=== PATIENT | female | born 1960 | race Caucasian/White ===

== ENCOUNTER → 2018-01-10 07:56 | Outpatient (CLI) | payer OTHER, SELFPAY ==
--- NOTE | 2018-01-10 | DI.MG.S_ITS ---
BILATERAL DIGITAL SCREENING MAMMOGRAM 3D/2D WITH CAD: 01/10/2018 CLINICAL: Routine screening. Comparison is made to exams dated: 11/03/2015 mammogram, 10/16/2012 mammogram, and 08/05/2009 mammogram - [facility]. The tissue of both breasts is heterogeneously dense. This may lower the sensitivity of mammography. Current study was also evaluated with a Computer Aided Detection (CAD) system. No significant masses, calcifications, or other findings are seen in either breast. There has been no significant interval change. IMPRESSION: NEGATIVE There is no mammographic evidence of malignancy. A 1 year screening mammogram is recommended. This exam was interpreted at Station ID: [id number]. NOTE: For mammograms, a report in lay terms will be sent to the patient. Approximately 15% of breast malignancies will not be visualized mammographically. In the management of a palpable breast mass, a negative mammogram must not discourage biopsy of a clinically suspicious lesion. Electronically Signed By: Farzad phillips/cristina:01/12/2018 02:37:02 letter sent: Normal Exam ACR BI-RADS Category 1: Negative [id number]
== END ==
PROVIDERS: Visit Provider Family Medicine
DX: Z12.31 Encounter for screening mammogram for malignant neoplasm of breast (principal)
CPT/HCPCS: 77063; 77067

== ENCOUNTER → 2018-11-08 10:32 | Outpatient (CLI) | payer OTHER, SELFPAY | DX: Z12.11 Encounter for screening for malignant neoplasm of colon (principal) | CPT/HCPCS: 82274 ==

== ENCOUNTER → 2018-11-13 14:41 | Outpatient (CLI) | payer OTHER, SELFPAY | DX: M85.88 Other specified disorders of bone density and structure, other site (principal); Z78.0 Asymptomatic menopausal state; M85.851 Other specified disorders of bone density and structure, right thigh; M85.852 Other specified disorders of bone density and structure, left thigh | CPT/HCPCS: 77080 ==

== ENCOUNTER 2021-12-23 11:15 | Emergency (ER) | payer OTHER, SELFPAY ==
[2021-12-23] VITALS (7 sets, daily range): BP systolic 123–155; BP diastolic 59–70; PULSE 61–72; RESP 14–22; TEMP 36.2; O2SAT 98–100; BMI 26.1
--- NOTE | 2021-12-23 11:41 | DI.RAD.S_ITS ---
PROCEDURE: XR CHEST 1V INDICATIONS: chest pain TECHNIQUE: One view of the chest was acquired. COMPARISON: None. FINDINGS: Surgical changes and devices: None. Lungs and pleura: Abnormal fullness can be seen within the left perihilar region. The lungs otherwise appear clear. No pleural effusions or pneumothorax. Mediastinum: Mediastinal contours appear normal. Heart size is normal. Bones and chest wall: No suspicious bony lesions. Overlying soft tissues appear unremarkable. IMPRESSION: There is abnormal fullness seen within the left perihilar region, which may be related to benign vasculature. However, differential diagnosis includes neoplasm. When clinically appropriate, please consider a follow-up chest CT with IV contrast for further evaluation. Dictated by: Luis Peters M.D. on 12/23/2021 at 11:33 Approved by: Luis Peters M.D. on 12/23/2021 at 11:34
[2021-12-23 12:13] LABS: Add Manual Diff / Slide Review NO; Basophils Absolute Auto 100 /uL (0-100); Basophils Percent Auto 1.1 % (0-2); Eosinophils Absolute Auto 500 /uL (0-450); Eosinophils Percent Auto 6.7 % (2-4); Hematocrit 40.3 % (36-46); Hemoglobin 13.2 g/dL (12.0-16.0); Lymphocytes Absolute Auto 1800 /uL (1100-4500); Lymphocytes Percent Auto 24.1 % (25-40); Mean Corpuscular HGB Conc 32.8 % (30-36); Mean Corpuscular Hemoglobin 28.6 PG (26-34); Mean Corpuscular Volume 87.3 fL (80-100); Monocytes Absolute Auto 400 /uL (0-900); Monocytes Percent Auto 5.7 % (3-14); Neutrophils Absolute Auto 4700 /uL (1500-7000); Neutrophils Percent Auto 62.4 % (50-75); Platelet Count 352 X10^3/uL (150-400); Red Blood Cell Count 4.61 X10^6/uL (4.0-5.2); White Blood Cell Count 7.6 X10^3/uL (4.5-11.0)
[2021-12-23 12:16] LABS: Alanine Aminotransferase 14 IU/L (<35); Albumin 4.6 g/dL (3.5-5.0); Albumin Globulin Ratio 1.1 (1.0-2.8); Alkaline Phosphatase 100 U/L (38-126); Aspartate Aminotransferase 25 IU/L (14-36); BUN Creatinine Ratio 16.7 (6-22); Bilirubin Total 0.3 mg/dL (0.2-1.3); Blood Urea Nitrogen 15 mg/dL (7-17); Calcium 9.4 mg/dL (8.4-10.2); Carbon Dioxide 27 mmol/L (22-32); Chloride 105 mmol/L (98-107); Creatine Kinase 93 U/L (30-135); Estimated Glomerular Filt Rate > 60 mL/min (>60); Globulin 4.3 g/dL (1.7-4.1); Glucose 88 mg/dL (80-110); HEMOLYSIS < 15 (0-50); Lipase 115 U/L (23-300); Magnesium 2.1 mg/dL (1.6-2.3); Potassium 4.1 mmol/L (3.4-5.1); Sodium 142 mmol/L (137-145); Total Protein 8.9 g/dL (6.3-8.2)
[2021-12-23 12:27] LABS: Troponin I < 0.012 ng/mL (0.01-0.034)
--- NOTE | 2021-12-23 14:47 | ED_ITS ---
HPI - Chest Pain General Chief Complaint: Chest Pain Stated Complaint: Thightness in chest Time Seen by Provider: 12/23/21 14:47 Source: patient Mode of arrival: Ambulatory Limitations: no limitations Limitations: no limitations History of Present Illness HPI narrative: Patient developed slight chest discomfort this morning. The discomfort was in the upper, central sternal region. Pain did not radiate. She has no dyspnea, no palpitations, no diaphoresis. He has no history of chronic cardiac or pulmonary disease. She did have COVID 19 last year. She has had somewhat of recurrent cough since then. She has no fever, chills, or headache. She denies sore throat. She has no dysphagia. She has no chest pain at this time. She is not having wheezing with the cough. She has never been a smoker. She is not GI discomfort, no history of GERD. Denies back pain. She has no peripheral edema. She has no skin changes. She feels well at this time. Related Data Home Medications Medication Instructions Recorded Confirmed [C-BIEST] ##0 02/06/16 10/09/18 Previous Rx's Medication Instructions Recorded acyclovir 400 mg tablet 400 mg PO BID #90 tabs 10/15/18 Allergies Allergy/AdvReac Type Severity Reaction Status Date / Time budesonide AdvReac Unknown hives Unverified 10/09/18 08:38 [From RHINOCORT ALLERGY] Review of Systems Constitutional Constitutional: Denies body ache(s), Denies chills, Denies fatigue, Denies fever(s), Denies malaise and Denies weakness ENT Ears, Nose, Mouth, and Throat: Denies vertigo, Denies dizziness, Denies sinus pressure and Denies sore throat Cardiovascular Cardiovascular: Reports chest pain, Reports chest pain at rest, Denies syncope, Denies irregular heart rhythm, Denies leg ulcers, Denies leg edema, Denies lightheadedness and Denies dyspnea on exertion Respiratory Respiratory: Reports change in phlegm color, Reports cough and Denies dyspnea on exertion Gastrointestinal Gastrointestinal: Denies abdominal pain and Denies melena Genitourinary Genitourinary: Denies dysuria Musculoskeletal Musculoskeletal: Denies back pain, Denies myalgias and Denies numbness Comments: No lower extremity edema. Integumentary/Breasts Skin/Breast: Denies lesions and Denies rash Neurologic Neurologic: Denies confusion, Denies vertigo, Denies dizziness, Denies syncope, Denies memory loss, Denies numbness and Denies weakness Psychiatric Psychiatric: Denies anxiety, Denies confusion, Denies depression and Denies memory loss Endocrine Endocrine: Denies fatigue Hematologic/Lymphatic On Anticoagulants: No Patient History Medical History (Updated 12/23/21 @ 18:45 by Tesfaye Nickerson MD) Herpes genitalis in women Menopause Social History Smoking Status: Never smoker Smoking Status: Never smoker Substance Use Type: does not use Exam Initial Vital Signs Initial Vital Signs: Vital Signs Temperature 97.1 F L 12/23/21 11:28 Pulse Rate 62 12/23/21 11:28 Respiratory Rate 18 12/23/21 11:28 Blood Pressure 123/59 L 12/23/21 11:28 Pulse Oximetry 99 12/23/21 11:28 Oxygen Delivery Method 12/23/21 11:28 Const General: cooperative, healthy appearing, comfortable, well developed and well groomed HENFL Head: normal to inspection, normocephalic and atraumatic Face and sinus: sinuses nontender Mouth: oral mucosae normal Throat: posterior oropharynx normal Eyes General: Yes appearance normal, both eyes and all related structures Pupils: PERRL EOM: EOM intact bilaterally Neck Neck: normal visual inspection and No JVD Chest Chest: normal inspection of the chest Resp Effort & Inspection: normal respiratory effort Auscultation: clear to auscultation bilaterally Cardio Rate: regular rate Rhythm: regular rhythm Heart Sounds: S1 normal, S2 normal and no murmurs GI Inspection: normal to inspection Palpation: soft and No tender Auscultation: normal bowel sounds Back/Spine/Pelvis Back: No back tenderness Thoracic/Lumbar Spine: thoracic and lumbar spine normal to inspection Skin General: no rashes or lesions noted Neuro General: patient alert, patient awake, patient oriented x3 and no focal motor deficits Extrem General: normal to inspection, full ROM, no pedal edema and no calf tenderness Course Course Course Narrative: X-ray and chest CT findings were discussed with the patient. She is stable, okay to go home. I have asked her to establish primary care to initiate her workup next week. Guidance is given. She should return here as needed. Orders Ordered: ED Orders 12/23/21 11:41 XR chest 1V Stat 12/23/21 11:50 Complete Blood Count AUTO DIFF Stat Comprehensive Metabolic Panel Stat Lipase Stat Magnesium Stat Troponin & CK Cardiac Panel Stat 12/23/21 14:56 CT chest w con Stat Vital Signs Vital signs: Vital Signs - 8 hr 12/23/21 11:28 12/23/21 14:36 12/23/21 15:00 Temperature 97.1 F L Pulse Rate 62 61 65 Respiratory Rate 18 19 22 Blood Pressure 123/59 L Pulse Oximetry 99 100 100 Oxygen Delivery Method Room Air 12/23/21 15:01 12/23/21 15:01 12/23/21 15:30 Temperature Pulse Rate 72 Respiratory Rate 14 Blood Pressure 155/70 H 142/65 H Pulse Oximetry 100 Oxygen Delivery Method 12/23/21 15:30 12/23/21 16:00 12/23/21 16:00 Temperature Pulse Rate 63 63 Respiratory Rate 21 21 Blood Pressure 135/63 Pulse Oximetry 99 99 Oxygen Delivery Method MDM - Chest Pain Lab Data Result diagrams: 12/23/21 11:50 12/23/21 11:50 Labs: Lab Results 12/23/21 12/23/21 Range/Units 11:50 11:50 WBC 7.6 (4.5-11.0) X10^3/uL RBC 4.61 (4.0-5.2) X10^6/uL Hgb 13.2 (12.0-16.0) g/dL Hct 40.3 (36-46) % MCV 87.3 (80-100) fL MCH 28.6 (26-34) PG MCHC 32.8 (30-36) % RDW 13.0 (11.6-14.8) % Plt Count 352 (150-400) X10^3/uL Neut % (Auto) 62.4 (50-75) % Lymph % (Auto) 24.1 L (25-40) % Mcnairy % (Auto) 5.7 (3-14) % Eos % (Auto) 6.7 H (2-4) % Baso % (Auto) 1.1 (0-2) % Neut # (Auto) 4700 (0661-8725) /uL Lymph # (Auto) 1800 (6650-2137) /uL Mcnairy # (Auto) 400 (0-900) /uL Eos # (Auto) 500 H (0-450) /uL Baso # (Auto) 100 (0-100) /uL Sodium 142 (137-145) mmol/L Potassium 4.1 (3.4-5.1) mmol/L Chloride 105 (98-107) mmol/L Carbon Dioxide 27 (22-32) mmol/L BUN 15 (7-17) mg/dL Creatinine 0.90 (0.52-1.04) mg/dL Estimated GFR > 60 (>60) mL/min BUN/Creatinine Ratio 16.7 (6-22) Glucose 88 (80-110) mg/dL Calcium 9.4 (8.4-10.2) mg/dL Magnesium 2.1 (1.6-2.3) mg/dL Total Bilirubin 0.3 (0.2-1.3) mg/dL AST 25 (14-36) IU/L ALT 14 (<35) IU/L Alkaline Phosphatase 100 (38-126) U/L Total Creatine Kinase 93 (30-135) U/L CK-MB (CK-2) TNP CK-MB (CK-2) Rel Index TNP Troponin I < 0.012 (0.01-0.034) ng/mL Total Protein 8.9 H (6.3-8.2) g/dL Albumin 4.6 (3.5-5.0) g/dL Globulin 4.3 H (1.7-4.1) g/dL Albumin/Globulin Ratio 1.1 (1.0-2.8) Lipase 115 (23-300) U/L Imaging Data Chest x-ray: Radiologist's Impression: Surgical changes and devices:? None.? ? Lungs and pleura:? Abnormal fullness can be seen within the left perihilar region.? The lungs otherwise appear clear.? No pleural effusions or pneumothorax.? ? Mediastinum:? Mediastinal contours appear normal.? Heart size is normal.? ? Bones and chest wall:? No suspicious bony lesions.? Overlying soft tissues appear unremarkable.? ? ? IMPRESSION:? There is abnormal fullness seen within the left perihilar region, which may be related to benign vasculature.? However, differential diagnosis includes neoplasm.? When clinically appropriate, please consider a follow-up chest CT with IV contrast for further evaluation. Chest CT: Radiologist's Impression: Lungs and pleura:? Within the left upper lobe anteriorly and medially, there is a triangular-shaped focal opacity seen that measures 4.7 x 3.7 cm in greatest axial dimension, with a craniocaudal extent of 4.5 cm, with somewhat irregular margins. ? No additional significant pulmonary abnormality can be seen.? No focal infiltrates are seen. No pneumothorax or pleural effusions are seen. The central airways are patent. ? Mediastinum:? Heart size is normal.? No pericardial effusion.? Mildly enlarged mediastinal lymph nodes are seen, including an AP window lymph node that measures 11 x 19 mm. Thoracic aorta and central pulmonary arteries are normal in size.? Esophagus is normal in caliber.? There is a small hiatal hernia.? ? Bones and chest wall:? No suspicious bony lesions.? No vertebral body compression fractures.? No axillary or supraclavicular adenopathy by size criteria.? Thyroid gland demonstrates no significant abnormality.? ? Abdomen:? Visualized upper abdominal solid organs appear normal.? Upper abdominal bowel loops are normal in caliber.? IMPRESSION:? There is a 4.7 cm mass involving the left upper lobe anteriorly and medially.? There is high suspicion for primary pulmonary neoplasm. ? ? Mild enlargement of mediastinal lymph nodes are seen, including an AP window lymph node that measures 19 x 11 mm, with suspicion for metastatic disease. ? As the next diagnostic step, please consider a dedicated PET-CT. ? Incidental note is made of: Small hiatal hernia ECG Data Attestation: I personally reviewed and interpreted this ECG as follows: (Normal sinus rhythm rate 63 beats per minute. Normal intervals. No ectopy. No acute ST T wave changes.) Discharge Plan Departure Patient Disposition: Home Clinical Impression: Lung mass Instructions: Lung Cancer Activity Restrictions/Additional Instructions: There is no evidence of a cardiac problem. Chest x-ray and CT are suggestive of lung cancer. Further evaluation including biopsy samples will be required to confirm a diagnosis. Call me Saturday at the [place] walk-in clinic, leave a message I will not be there at that time. I will try to establish you with links to primary care in [place] to initiate your necessary workup. Return here as needed. Prescriptions: No Action [C-BIEST] Qty: 0 acyclovir 400 mg tablet 400 mg PO BID Qty: 90 2RF
--- NOTE | 2021-12-23 14:56 | DI.CT.S_ITS ---
PROCEDURE: CT CHEST W CON INDICATIONS: Chest discomfort. Left hilar abnormally. TECHNIQUE: After the administration of intravenous contrast, 5 mm thick sections acquired from the pulmonary apices to the posterior costophrenic angles. 1 mm axial lung, 5 mm thick coronal and sagittal reformats and 7 mm axial MIP were acquired. For radiation dose reduction, the following was used: automated exposure control, adjustment of mA and/or kV according to patient size. COMPARISON: [facility], CR, XR CHEST 1V, 12/23/2021, 12:14. FINDINGS: Image quality: Excellent. Lungs and pleura: Within the left upper lobe anteriorly and medially, there is a triangular-shaped focal opacity seen that measures 4.7 x 3.7 cm in greatest axial dimension, with a craniocaudal extent of 4.5 cm, with somewhat irregular margins. No additional significant pulmonary abnormality can be seen. No focal infiltrates are seen. No pneumothorax or pleural effusions are seen. The central airways are patent. Mediastinum: Heart size is normal. No pericardial effusion. Mildly enlarged mediastinal lymph nodes are seen, including an AP window lymph node that measures 11 x 19 mm. Thoracic aorta and central pulmonary arteries are normal in size. Esophagus is normal in caliber. There is a small hiatal hernia. Bones and chest wall: No suspicious bony lesions. No vertebral body compression fractures. No axillary or supraclavicular adenopathy by size criteria. Thyroid gland demonstrates no significant abnormality. Abdomen: Visualized upper abdominal solid organs appear normal. Upper abdominal bowel loops are normal in caliber. IMPRESSION: There is a 4.7 cm mass involving the left upper lobe anteriorly and medially. There is high suspicion for primary pulmonary neoplasm. Mild enlargement of mediastinal lymph nodes are seen, including an AP window lymph node that measures 19 x 11 mm, with suspicion for metastatic disease. As the next diagnostic step, please consider a dedicated PET-CT. Incidental note is made of: Small hiatal hernia Dictated by: Luis Peters M.D. on 12/23/2021 at 14:59 Approved by: Luis Peters M.D. on 12/23/2021 at 15:03
== END 2021-12-23 18:53 | disposition home or self-care (01) ==
PROVIDERS: Emergency Provider Emergency Medicine
DX: R91.8 Other nonspecific abnormal finding of lung field (principal); R07.9 Chest pain, unspecified
CPT/HCPCS: 36415; 71045; 71260; 80053; 82550; 83690; 83735; 84484; 85025; 93005; 99283; 99284; Q9967

== ENCOUNTER → 2023-07-19 10:12 | Outpatient (CLI) | payer SELFPAY | PROVIDERS: PCP Internal Medicine; Referring Provider Internal Medicine Critical Care Medicine; Visit Provider Internal Medicine Critical Care Medicine | DX: J47.9 Bronchiectasis, uncomplicated (principal) | CPT/HCPCS: 87070; 87116; 87205; 87206 ==

== ENCOUNTER → 2023-08-09 11:14 | Outpatient (CLI) | payer SELFPAY | LOC: LAB 11:16 | PROVIDERS: PCP Internal Medicine; Referring Provider Internal Medicine Critical Care Medicine; Visit Provider Internal Medicine Critical Care Medicine | DX: J47.1 Bronchiectasis with (acute) exacerbation (principal) | CPT/HCPCS: 87116; 87206 ==

== ENCOUNTER → 2024-01-20 17:42 | Outpatient (CLI) | payer SELFPAY ==
--- NOTE | 2024-01-20 17:51 | DI.MG.S_ITS ---
BILATERAL DIGITAL SCREENING MAMMOGRAM 3D/2D WITH CAD: 01/20/2024 CLINICAL: Routine screening. Comparison is made to exams dated: 01/10/2018 mammogram and 11/03/2015 mammogram - [facility]. The breasts are heterogeneously dense, which may obscure small masses (category c / 51-75% glandular tissue). Current study was also evaluated with a Computer Aided Detection (CAD) system. No significant masses, calcifications, or other findings are seen in either breast. There has been no significant interval change. IMPRESSION: NEGATIVE There is no mammographic evidence of malignancy. A 1 year screening mammogram is recommended. Based on the Tyrer Cuzick model (a risk assessment model) the patient's lifetime risk is 8.9% and her 10 year risk is 3.8%. According to the ACR, ACS, and NCCN guidelines, an annual breast MRI exam along with mammogram is recommended if the patient's lifetime risk is 20% or greater. This exam was interpreted at Station ID: [id number]. NOTE: For mammograms, a report in lay terms will be sent to the patient. Approximately 15% of breast malignancies will not be visualized mammographically. In the management of a palpable breast mass, a negative mammogram must not discourage biopsy of a clinically suspicious lesion. Electronically Signed By: Otto rangel/cristina:01/21/2024 14:12:07 letter sent: Normal Exam ACR BI-RADS Category 1: Negative
== END ==
PROVIDERS: PCP Internal Medicine; Referring Provider Internal Medicine; Visit Provider Internal Medicine
DX: Z12.31 Encounter for screening mammogram for malignant neoplasm of breast (principal); R92.333 Mammographic heterogeneous density, bilateral breasts
CPT/HCPCS: 77063; 77067